=== PATIENT | female | born 2005 | race Caucasian/White ===

== ENCOUNTER 2024-06-22 18:31 | Emergency (ER) | payer SELFPAY | END 2024-06-22 21:49 | disposition home or self-care (01) | LOC: JD.ED 18:31 | DX: S99.921A Unspecified injury of right foot, initial encounter (principal); Z86.16 Personal history of COVID-19; W18.41XA Slipping, tripping and stumbling without falling due to stepping on object, initial encounter | CPT/HCPCS: 73660-26-T9; 73660-T9; 99284 ==

== ENCOUNTER 2024-07-16 12:41 | Emergency (ER) | payer SELFPAY | END 2024-07-16 15:55 | disposition left against medical advice (07) | LOC: JD.ED 12:41 | DX: Z53.21 Procedure and treatment not carried out due to patient leaving prior to being seen by health care provider (principal) ==

== ENCOUNTER 2025-03-03 00:44 | Emergency (ER) | payer SELFPAY ==
[2025-03-03] MEDS: Acetaminophen/HYDROcodone 325-5 MG Tab PO ONE (01:22)
== END 2025-03-03 03:47 | disposition home or self-care (01) ==
LOC: JD.ED 00:44
DX: S82.891A Other fracture of right lower leg, initial encounter for closed fracture (principal); Z86.16 Personal history of COVID-19; X50.0XXA Overexertion from strenuous movement or load, initial encounter; Y93.89 Activity, other specified
CPT/HCPCS: 29515; 73590; 73610; 99283; A9270; 99284